=== PATIENT | male | born 1945 | race Caucasian/White ===

== ENCOUNTER 2017-11-27 12:37 | Emergency (ER) | payer OTHER ==
[~2017-11-27] VITALS: Ht 175.3 cm; Wt 95.3 kg
[2017-11-27] MEDS ORDERED: FORTAMET1000 MG (13:35)
[2017-11-27] MEDS ORDERED: ALPRAZOLAM (13:37)
[2017-11-27] MEDS ORDERED: GLIMEPIRIDE1 MG (13:38)
[2017-11-27] MEDS ORDERED: QBRELIS1 MG/1 ML (13:38)
[2017-11-27] MEDS ORDERED: ECOTRIN81 MG (13:39)
[2017-11-27] MEDS ORDERED: BETAPACE AF160 MG (13:40)
[2017-11-27] MEDS ORDERED: ZOCOR20 MG (13:42)
== END 2017-11-28 01:20 | disposition home or self-care (01) ==
LOC: ER 12:37
DX: S05.11XA Contusion of eyeball and orbital tissues, right eye, initial encounter (principal); S20.211A Contusion of right front wall of thorax, initial encounter; R55 Syncope and collapse; R06.02 Shortness of breath; R63.0 Anorexia; R19.7 Diarrhea, unspecified; W18.09XA Striking against other object with subsequent fall, initial encounter; Y93.89 Activity, other specified; Y92.018 Other place in single-family (private) house as the place of occurrence of the external cause; Y99.8 Other external cause status